=== PATIENT | female | born 1945 | race African-American/Black ===

== ENCOUNTER → 2017-07-13 | Outpatient (CLI) | payer MEDICARE, OTHER ==
[~2017-07-13] MED LIST: ADAL40PE SQ; CHOL20004 PO; FOLI-43 PO; MELO-106 PO; METH2.5T PO; METH4TAB17 PO
== END | disposition home or self-care (01) ==
LOC: MAMMO 08:19
PROVIDERS: ATTEND Specialist
DX: Z12.31 Encounter for screening mammogram for malignant neoplasm of breast (principal)
CPT/HCPCS: G0202

== ENCOUNTER 2019-01-21 10:42 | Emergency (ER) | payer OTHER ==
[~2019-01-21] VITALS: Ht 162.6 cm; Wt 78.0 kg
[2019-01-21] MEDS ORDERED: IBUPROFEN 600MG TABLET PO STA (11:19)
[2019-01-21 11:35] LABS: BASOPHILS % 2.1 % (0.0-2.0); EOSINOPHILS % 1.1 % (0.0-5.0); HEMATOCRIT. 34.4 % (36.0-48.0); LYMPHOCYTES % 29.9 % (20.0-50.0); MEAN CORPUSCULAR HEMOGLOBIN 29.2 pg (28.0-32.0); MEAN CORPUSCULAR VOLUME 83.4 fL (81.0-99.0); MONOCYTES % 11.4 % (2.0-8.0); NEUTROPHILS % 55.5 % (40.0-76.0); PLATELET 263 x1000/uL (130-400); RED BLOOD CELL COUNT 4.12 mill/uL (4.2-5.4); RED CELL DISTRIBUTION WIDTH 16.7 % (11.6-14.6)
[2019-01-21 11:40] LABS: CHLORIDE 107 mEq/L (98-107)
[2019-01-21] MEDS ORDERED: ACETAMINOPHEN 325MG TABLET PO ONE (12:45)
[2019-01-21 12:51] VITALS: BP 149/76
== END 2019-01-21 13:01 | disposition home or self-care (01) ==
LOC: ER 10:42
DX: I10 Essential (primary) hypertension (principal); M54.2 Cervicalgia; H53.8 Other visual disturbances; R51 Headache; M19.90 Unspecified osteoarthritis, unspecified site; E78.00 Pure hypercholesterolemia, unspecified; Z90.710 Acquired absence of both cervix and uterus; Z96.659 Presence of unspecified artificial knee joint; Z88.0 Allergy status to penicillin; Z79.899 Other long term (current) drug therapy
CPT/HCPCS: 36415; 71045; 93005; 99284